=== PATIENT | female | born 1995 | race Caucasian/White ===

== ENCOUNTER 2017-03-22 21:32 | Emergency (ER) | payer OTHER ==
[~2017-03-22] VITALS: Ht 154.9 cm; Wt 76.2 kg
[2017-03-22] MEDS ORDERED: PRENATAL VITAMINS PO (21:52)
[2017-03-22] MEDS ORDERED: thyroid PO (21:52)
[2017-03-22 22:22] LABS: BASO % 0.1 % (0.0-1.0); EOS # 0.1 K/mm3 (0.0-0.50); EOS % 0.7 % (0.0-3.0); LARGE UNSTAINED CELL # 0.2 K/mm3 (0.0-0.4); LARGE UNSTAINED CELL % 1.7 % (0.0-4.0); LYMPH # 2.7 K/mm3 (1.5-6.5); LYMPH % 21.5 % (24.0-44.0); MEAN CORPUSCULAR HEMOGLOBIN 28.9 pg (27.0-33.0); MEAN CORPUSCULAR HGB CONC 34.5 g/dl (32.0-36.5); MEAN CORPUSCULAR VOLUME 83.8 fl (80.0-96.0); MONO # 0.5 K/mm3 (0.0-0.8); MONO % 3.7 % (0.0-5.0); NEUTROPHILS # 8.9 K/mm3 (1.8-7.7); NEUTROPHILS % 72.3 % (36.0-66.0); PLATELET COUNT, AUTOMATED 193 k/mm3 (150-450); WHITE BLOOD COUNT 12.4 K/mm3 (4.0-10.0)
--- NOTE | 2017-03-22 23:30 | REPUSA ---
CLINICAL HISTORY: , vaginal bleeding. LMP November 15, 2016. LMP gestational age 18 weeks 1 day. TECHNIQUE: OB ultrasound COMPARISON: No study for comparison is available at the time of interpretation. Uterus: Normal without masses. Cervix 3.1 cm with closed os. Intrauterine gestation sac: Live IUP at 18 weeks 3 days with heart rate 141 bpm. CARLENE (US) August 20, 2017 BPD: 18 weeks 4 days HC: 18 weeks 2 days AC: 18 weeks 3 days FL: 18 weeks 5 days EFW: 146 g, 65% expected A full anatomic evaluation is beyond the scope of this emergency ultrasound. There is suboptima l evaluation of the cranium, cavum septum pellucidum, 4 chamber heart and spine. UVALDO within normal limits. Placenta: Posterior, without previa. Maternal Ovaries: Not visualized. IMPRESSION: Live IUP at 18 weeks 3 days. Sizes equal dates. Insufficient anatomic evaluation. Recommend follow-up ultrasound to complete anatomic survey.
[2017-03-22 23:45] VITALS: BP 132/62
== END 2017-03-22 23:46 | disposition home or self-care (01) ==
LOC: M ED 23:37
DX: O20.0 Threatened abortion (principal); O99.282 Endocrine, nutritional and metabolic diseases complicating pregnancy, second trimester; E03.9 Hypothyroidism, unspecified; O99.332 Smoking (tobacco) complicating pregnancy, second trimester; Z79.899 Other long term (current) drug therapy; Z3A.18 18 weeks gestation of pregnancy

== ENCOUNTER 2017-05-28 01:10 | Emergency (ER) | payer OTHER ==
[~2017-05-28 01:10] MED LIST: PRENATAL VITAMINS PO; thyroid PO
== END 2017-05-28 01:32 | disposition admitted as inpatient to this hospital (09) ==
LOC: M ED 01:10
DX: R10.9 Unspecified abdominal pain (principal)

== ENCOUNTER 2017-05-28 01:28 | Outpatient (CLI) | payer OTHER ==
[~2017-05-28] VITALS: Ht 157.5 cm; Wt 80.0 kg
[2017-05-28 01:48] VITALS: BP 122/68
== END 2017-05-28 02:19 | disposition home or self-care (01) ==
LOC: M LDO 01:28
PROVIDERS: ATTEND Student in an Organized Health Care Education/Training Program
DX: O26.892 Other specified pregnancy related conditions, second trimester (principal); Z3A.27 27 weeks gestation of pregnancy; R10.9 Unspecified abdominal pain; K21.9 Gastro-esophageal reflux disease without esophagitis; E05.00 Thyrotoxicosis with diffuse goiter without thyrotoxic crisis or storm; F17.210 Nicotine dependence, cigarettes, uncomplicated; O99.282 Endocrine, nutritional and metabolic diseases complicating pregnancy, second trimester; O99.332 Smoking (tobacco) complicating pregnancy, second trimester; O99.612 Diseases of the digestive system complicating pregnancy, second trimester

== ENCOUNTER 2017-06-30 13:56 | Outpatient (CLI) | payer OTHER ==
[~2017-06-30] VITALS: Ht 157.5 cm; Wt 80.0 kg
[2017-06-30 14:13] VITALS: BP 151/70
[2017-06-30 14:22] VITALS: BP 129/65
[2017-06-30] MEDS ORDERED: LR 1,000 ML IV SCH ×2 (15:00→19:13)
[2017-06-30] MEDS ORDERED: LR 1,000 ML IV ONE (15:00)
[2017-06-30 15:23] VITALS: BP 126/66
[2017-06-30 15:54] LABS: MEAN CORPUSCULAR HEMOGLOBIN 29.2 pg (27.0-33.0); MEAN CORPUSCULAR HGB CONC 34.9 g/dl (32.0-36.5); MEAN CORPUSCULAR VOLUME 83.5 fl (80.0-96.0)
[2017-06-30 15:59] LABS: CALCIUM OXALATE CRYSTALS SMALL
[2017-06-30 16:16] LABS: ALBUMIN 2.7 GM/DL (3.2-5.2); ALBUMIN/GLOBULIN RATIO 0.73 (1.00-1.93); ALKALINE PHOSPHATASE 183 U/L (45-117); ALT/SGPT 16 U/L (12-78); ANION GAP 8 MEQ/L (8-16); AST/SGOT 11 U/L (15-37); BILIRUBIN,TOTAL 1.6 MG/DL (0.2-1.0); BLOOD UREA NITROGEN 4 MG/DL (7-18); CALCIUM LEVEL 9.1 MG/DL (8.5-10.1); CARBON DIOXIDE LEVEL 24 MEQ/L (21-32); CHLORIDE LEVEL 108 MEQ/L (98-107); CREATININE FOR GFR 0.41 MG/DL (0.55-1.02); GLUCOSE, FASTING 85 MG/DL (70-105); POTASSIUM SERUM 3.9 MEQ/L (3.5-5.1); SODIUM LEVEL 140 MEQ/L (136-145); TOTAL PROTEIN 6.4 GM/DL (6.4-8.2)
[2017-06-30 17:15] VITALS: BP 115/57
[2017-06-30 18:26] VITALS: BP 117/61
[2017-06-30] MEDS ORDERED: BETAMETHASONE SOLUSPAN 6MG/ML INJ 5ML (J0702) IM SCH (19:15)
== END 2017-06-30 21:10 | disposition home or self-care (01) ==
LOC: M LDO 13:56
PROVIDERS: ATTEND Student in an Organized Health Care Education/Training Program
DX: O47.03 False labor before 37 completed weeks of gestation, third trimester (principal); Z3A.32 32 weeks gestation of pregnancy; O99.283 Endocrine, nutritional and metabolic diseases complicating pregnancy, third trimester; O99.613 Diseases of the digestive system complicating pregnancy, third trimester; O13.3 Gestational [pregnancy-induced] hypertension without significant proteinuria, third trimester
CPT/HCPCS: 36415; 59025; 80053; 81001; 82570; 84156; 85027; 86780; 86850; 86900; 86901; 87081; 87086; 96365; 96366; 96372; J0702

== ENCOUNTER 2017-07-01 18:47 | Outpatient (CLI) | payer OTHER ==
[~2017-07-01] VITALS: Ht 157.5 cm; Wt 80.0 kg
[2017-07-01 18:58] VITALS: BP 128/67
[2017-07-01] MEDS ORDERED: BETAMETHASONE SOLUSPAN 6MG/ML INJ 5ML (J0702) IM STA (19:29)
[2017-07-01 19:58] VITALS: BP 118/66
== END 2017-07-01 20:00 | disposition home or self-care (01) ==
LOC: M LDO 18:47
PROVIDERS: ATTEND Obstetrics & Gynecology
DX: Z34.83 Encounter for supervision of other normal pregnancy, third trimester (principal); Z3A.32 32 weeks gestation of pregnancy; O36.8130 Decreased fetal movements, third trimester, not applicable or unspecified

== ENCOUNTER → 2017-07-03 | Outpatient (CLI) | payer OTHER ==
[~2017-07-03] MED LIST changes: +COLA100C5 PO; +IBUP-1114 PO; +METH10TA PO; +TUMS500C PO
--- NOTE | 2017-07-04 14:30 | REP ---
Clinical: well-being. Biophysical profile. Technique: Transabdominal obstetrical ultrasound using curved array transducer with color Doppler evaluation. Findings: Single live advanced gestation in cephalic presentation. motion was identified by technologist. Placenta is noted posteriorly and grade 1 without evidence for placenta previa or abruption. Amniotic fluid volume is normal. Cervix measures 3 cm in length and appears closed. Gestational age by LMP 32 week 6 days with estimated date of delivery 08/22/2017. heart rate equals 140 beats per minute. Biophysical profile score equals 8/8. Amniotic fluid index equals 14.4 cm (8.3 - 24.5). Umbilical cord SD ratio equals 2.96 (2.05 - 3.05). Impression: Single live advanced gestation in cephalic presentation. No physical profile score equals 8/8. UVALDO equals 14.4 cm. Signed by Kyle Gifford MD 07/03/2017 09:51 P
== END ==
LOC: M RAD 10:35
PROVIDERS: ATTEND Obstetrics & Gynecology
DX: Z36 Encounter for antenatal screening of mother (principal); Z3A.32 32 weeks gestation of pregnancy

== ENCOUNTER 2017-07-27 20:08 | Outpatient (CLI) | payer OTHER ==
[~2017-07-27] VITALS: Ht 154.9 cm; Wt 85.0 kg
[~2017-07-27 20:08] MED LIST changes: -COLA100C5 PO; -IBUP-1114 PO; -METH10TA PO; -TUMS500C PO
[2017-07-27 20:25] VITALS: BP 136/78
[2017-07-27] MEDS ORDERED: METH10TA PO (20:26)
[2017-07-27] MEDS ORDERED: TUMS500C PO (20:26)
--- NOTE | 2017-07-27 22:26 | HPE ---
DATE OF ADMISSION: 07/27/2017 HISTORY: A 22-year-old 3, para 2, last menstrual period (LMP) 10/30/2016, estimated date of confinement (EDC) 08/22/2017, at 36 and three, had decreased movement since 04:00 p.m. today. RISK FACTORS: She has Graves' disease. She is a smoker, had a previous history of intrauterine demise (IUFD) at 20 weeks and has gastroesophageal reflux disease (GERD). She has also had a delivery at 36 weeks induced for gestational hypertension. PAST HISTORY: 1. 2012: 20 weeks IUFD, uncertain circumstances. 2. 2015: At 36 weeks induction of labor for gestational hypertension (G-HYPERTENSION) male 6 pounds 6 ounces, spontaneous vaginal delivery. LABORATORY DATA: O positive, HIV negative, hepatitis negative, RPR negative, rubella immune. Varicella by history. Urine negative. Gonorrhea and chlamydia negative. 1-hour glucose 116. CF was declined. PHYSICAL EXAMINATION: On examination no acute distress. Symphysis fundus height is appropriate. Four quadrant bowel sounds are noted. Category one strip. No contractions. The occasional tightening is noted, but she has had that for several weeks. No vaginal loss or bleeding. Urine is 1.015, pH six is negative. Blood pressure 136/78, respirations 20, pulse 114, temperature is 98.1. The rest the examination is unremarkable. Normocephalic, atraumatic. Neck full range of motion. Pupils equal and reactive to light. Distal pulses symmetric. No evidence of deep venous thrombosis (DVT), pulmonary embolism (PE) or superficial phlebitis. Lungs are clear bilaterally to the bases. No wheezes or rhonchi. No costovertebral angle tenderness. Abdomen as mentioned is normal. Nontender uterus. Four quadrant bowel sounds are noted. She has no rashes, lesions or pruritus. No arthralgia or myalgia. No complaints of cough, wheezes, shortness of breath or dyspnea on exertion. Thyroid is midline, nontender, 30 grams. No chest pain. No bleeding. Neuro complete. No incontinence, urgency or frequency. No nausea, vomiting, diarrhea or constipation. No diabetic issues. Endocrine issues are her thyroid which is under control with medication. She is going to run out tomorrow and we will get a refill. GYNECOLOGIC HISTORY: She is less than 21. No Pap smear. PAST MEDICAL HISTORY. GERD and Graves' disease. PAST SURGICAL HISTORY: Noncontributory. FAMILY HISTORY: Noncontributory. SOCIAL HISTORY: She smokes. Does not drink, does not abuse drugs. She is to a soldier. No domestic violence. ASSESSMENT AND PLAN: In summary have a 36 and 3 weeks of gestation with decreased movement. Category one strip. Precautions were given regarding kick chart, premature rupture of membranes, bleeding, and when to call the provider. The patient was discharged undelivered. She has an appointment tomorrow with Dr. Gomes
== END 2017-07-27 21:16 | disposition home or self-care (01) ==
LOC: M LDO 20:08
PROVIDERS: ATTEND Obstetrics & Gynecology
DX: O36.8130 Decreased fetal movements, third trimester, not applicable or unspecified (principal); Z3A.36 36 weeks gestation of pregnancy; E05.00 Thyrotoxicosis with diffuse goiter without thyrotoxic crisis or storm; O99.283 Endocrine, nutritional and metabolic diseases complicating pregnancy, third trimester; O99.333 Smoking (tobacco) complicating pregnancy, third trimester; O13.3 Gestational [pregnancy-induced] hypertension without significant proteinuria, third trimester; O99.613 Diseases of the digestive system complicating pregnancy, third trimester

== ENCOUNTER 2017-08-17 06:24 | Outpatient (CLI) | payer OTHER ==
[~2017-08-17] VITALS: Ht 154.9 cm; Wt 90.0 kg
[2017-08-17] VITALS (7 sets, daily range): BP systolic 117–165; BP diastolic 71–94
[~2017-08-17 06:24] MED LIST changes: +METH10TA PO; +TUMS500C PO
--- NOTE | 2017-08-17 08:01 | IPNPDOC ---
Text Note Date of Service The patient was seen on 08/17/17. NOTE [id number] @ 0748 22 yo @ 39+2 by 5+6 wk US on [id number] presents to L&D ambulatory for IOL(social). She was instructed that if her cervix is not favorable for IOL then he will be sent home. Denies LOF, DFM, CTX and VB. RN informed me that she had a BP 165/94 @ 0722, repeat BP 117/71 @ 0724. will draw lab. S: Pt is resting in bed comfortable with spouse at bedside. O: Isolated elevated BP, febrile FHR-130, moderate variability, + accels, no decels CTX- Q 3-7 min, palpated as mild, resting tone palpated as soft SVE- 1/thick/ballotable, soft/mid/vtx PCR-0.18 Plt- 126 AST-9 ALT- 13 LDH- 153 A: 22 yo @ 39+2, cervix is unfavorable for IOL. Reactive NST. Labs are appropriate P: Discharge to home with strict return precautions for pre-e and labor precautions. She verbalized understanding. VS,Fishbone, I+O VS, Fishbone, I+O Vital Signs Date Time Temp Pulse Resp B/P (MAP) Pulse Ox O2 Delivery O2 Flow Rate FiO2 08/17/17 06:47 99.1 129 18 132/89 (103) DILIA ABBASI CNM Aug 17, 2017 08:01
[2017-08-17 08:12] LABS: MEAN CORPUSCULAR HEMOGLOBIN 28.2 pg (27.0-33.0); MEAN CORPUSCULAR HGB CONC 34.2 g/dl (32.0-36.5); MEAN CORPUSCULAR VOLUME 82.3 fl (80.0-96.0); WHITE BLOOD COUNT 8.8 10^3/uL (4.0-10.0)
[2017-08-17 08:58] LABS: ALBUMIN 2.4 GM/DL (3.2-5.2); ALBUMIN/GLOBULIN RATIO 0.69 (1.00-1.93); ALKALINE PHOSPHATASE 227 U/L (45-117); ALT/SGPT 13 U/L (12-78); ANION GAP 10 MEQ/L (8-16); AST/SGOT 9 U/L (15-37); BILIRUBIN,TOTAL 1.1 MG/DL (0.2-1.0); BLOOD UREA NITROGEN 4 MG/DL (7-18); CALCIUM LEVEL 8.4 MG/DL (8.5-10.1); CARBON DIOXIDE LEVEL 21 MEQ/L (21-32); CHLORIDE LEVEL 111 MEQ/L (98-107); CREATININE FOR GFR 0.36 MG/DL (0.55-1.02); GLUCOSE, FASTING 93 MG/DL (70-105); POTASSIUM SERUM 3.7 MEQ/L (3.5-5.1); SODIUM LEVEL 142 MEQ/L (136-145); TOTAL PROTEIN 5.9 GM/DL (6.4-8.2); URIC ACID 4.1 MG/DL (2.6-6.0)
== END 2017-08-17 09:48 | disposition home or self-care (01) ==
LOC: M LDO 06:24
PROVIDERS: ATTEND Midwife
DX: O26.893 Other specified pregnancy related conditions, third trimester (principal); Z3A.39 39 weeks gestation of pregnancy

== ENCOUNTER 2017-08-21 12:34 | Inpatient (IN) | payer OTHER ==
[~2017-08-21] VITALS: Ht 154.9 cm; Wt 89.8 kg
[2017-08-21] VITALS (31 sets, daily range): BP systolic 128–171; BP diastolic 63–96
[2017-08-21] MEDS: miSOPROStol 50 MCG 1/2 TAB (S0191) PO SCH ×2 (15:34→19:00)
[2017-08-21 15:55] LABS: MEAN CORPUSCULAR HEMOGLOBIN 27.1 pg (27.0-33.0); MEAN CORPUSCULAR HGB CONC 33.3 g/dl (32.0-36.5); MEAN CORPUSCULAR VOLUME 81.4 fl (80.0-96.0); PLATELET COUNT, AUTOMATED 152 10^3/uL (150-450); RED CELL DISTRIBUTION WIDTH 13.8 % (11.5-14.5); WHITE BLOOD COUNT 11.1 10^3/uL (4.0-10.0)
[2017-08-21] MEDS ORDERED: FENTANYL 2MCG/ML ROPIVACAINE 0.2% IN 0.9% NACL 200ML IVBAG As Ordered ONE (19:06)
[2017-08-21] MEDS ORDERED: ePHEDrine SULFATE 25 MG/5 ML(5MG/ML) SYRINGE IV PRN (20:15)
[2017-08-21] MEDS ORDERED: EPIDURAL COMMENT XX SCH (20:15)
[2017-08-21] MEDS ORDERED: diphenhydrAMINE INJ 50MG/ML VIAL (J1200) IV PRN (20:15)
[2017-08-21] MEDS ORDERED: LACTATED RINGER'S 1000 ML IV PRN (20:15)
[2017-08-21] MEDS ORDERED: ONDANSETRON 4MG/2ML VIAL (J2405) IV PRN ×2 (20:15→23:45)
[2017-08-21] MEDS ORDERED: REFRIGERATOR IV KEYS XX PRN (20:15)
[2017-08-21] MEDS ORDERED: NALOXONE INJ 0.4 MG/1 ML VIAL (J2310) IV PRN (20:15)
[2017-08-21] MEDS ORDERED: FENTANYL/ROPIVACAINE/NACL BAG 200 ML EPIDURAL SCH (20:15)
[2017-08-21] MEDS ORDERED: EPIDURAL/PCA KEYS XX PRN (20:15)
[2017-08-21] MEDS ORDERED: OXYTOCIN 30 UNITS IN 0.9% NaCl 500ML IV BAG (J2590) As Ordered ONE (23:12)
[2017-08-21] MEDS ORDERED: OXYTOCIN DRIP 30 UNITS in APPROPRIATE DILUENT 1 EA IV SCH (23:44)
[2017-08-21] MEDS ORDERED: ACETAMINOPHEN 500 MG TAB PO PRN (23:45)
[2017-08-21] MEDS ORDERED: DIBUCAINE 1% OINTMENT 30GM TOP PRN (23:45)
[2017-08-21] MEDS ORDERED: RHOGAM 300 MCG (1500 IU) INJ (J2790) IM SCH (23:45)
[2017-08-21] MEDS ORDERED: METHYLERGONOVINE MALEATE 0.2 MG/ML VIAL (J2210) IM PRN (23:45)
[2017-08-21] MEDS ORDERED: MEASLES,MUMPS,RUBELLA VACCINE INJ (MMR-II) (90707) SC SCH (23:45)
[2017-08-21] MEDS ORDERED: PROMETHAZINE 25 MG TAB PO PRN (23:45)
[2017-08-22] VITALS (10 sets, daily range): BP systolic 106–151; BP diastolic 59–88
[2017-08-22] MEDS: IBUPROFEN 800 MG TAB PO PRN ×2 (05:53→16:11)
[2017-08-22] MEDS: DOCUSATE SODIUM 100 MG CAP PO SCH ×2 (09:00→19:46)
[2017-08-22] MEDS: PRENATAL VITAMINS CHEWABLE TABLET PO SCH (09:54)
[2017-08-23] MEDS: IBUPROFEN 800 MG TAB PO PRN (03:42)
[2017-08-23 04:25] VITALS: BP 130/80
[2017-08-23 06:00] VITALS: BP 139/68
[2017-08-23 07:17] LABS: MEAN CORPUSCULAR HEMOGLOBIN 27.8 pg (27.0-33.0); MEAN CORPUSCULAR HGB CONC 33.6 g/dl (32.0-36.5); MEAN CORPUSCULAR VOLUME 82.8 fl (80.0-96.0); PLATELET COUNT, AUTOMATED 134 10^3/uL (150-450); WHITE BLOOD COUNT 7.3 10^3/uL (4.0-10.0)
--- NOTE | 2017-08-23 07:18 | IPNPDOC ---
Progress Note Date of Service The patient was seen on 08/23/17 at 07:15. Progress Note PPD#2 s/p S: Pt doing well. Pain well controlled, lochia minimal, voiding spontaneously without problem, tolerating a regular diet, ambulating without difficulty. No f /c/n/v/CHUNG. Plans on breast feeding. O: normotensive now but had a couple mild range bp's yesterday, nml HR, afebrile General: WDWN, resting comfortably in bed Abd: soft, appropriately tender, and FF at U-2/fundus nontender Ext: no c/c/e A/P: S/p , PPD#2. Hemodynamically stable, afebrile, good pain control. Had a couple mild range bp's, no symptoms of pre-E. -PIH labs, anticipate they will be normal -Discharge home today with follow up in 6 weeks -discussed return precautions at length -given home meds: lanolin, colace, tylenol, motrin Dr. Fabi Padron ([facility])MD VS, I&O, 24H, Fishbone Vital Signs/I&O Vital Signs Date Time Temp Pulse Resp B/P (MAP) Pulse Ox O2 Delivery O2 Flow Rate FiO2 08/23/17 06:00 98.0 95 18 139/68 (91) 08/22/17 13:00 98 Room Air Laboratory Data 24H LABS Laboratory Tests 2 08/23/17 07:09: FABI PADRON MD Aug 23, 2017 07:18
[2017-08-23 07:40] LABS: ALBUMIN 2.5 GM/DL (3.2-5.2); ALBUMIN/GLOBULIN RATIO 0.76 (1.00-1.93); ALKALINE PHOSPHATASE 180 U/L (45-117); ALT/SGPT 13 U/L (12-78); ANION GAP 9 MEQ/L (8-16); AST/SGOT 15 U/L (15-37); BILIRUBIN,TOTAL 0.8 MG/DL (0.2-1.0); BLOOD UREA NITROGEN 5 MG/DL (7-18); CALCIUM LEVEL 8.3 MG/DL (8.5-10.1); CARBON DIOXIDE LEVEL 23 MEQ/L (21-32); CHLORIDE LEVEL 109 MEQ/L (98-107); CREATININE FOR GFR 0.43 MG/DL (0.55-1.02); GLUCOSE, FASTING 95 MG/DL (70-105); POTASSIUM SERUM 3.8 MEQ/L (3.5-5.1); SODIUM LEVEL 141 MEQ/L (136-145); TOTAL PROTEIN 5.8 GM/DL (6.4-8.2); URIC ACID 3.7 MG/DL (2.6-6.0)
[2017-08-23] MEDS ORDERED: COLA100C5 PO (07:46)
[2017-08-23] MEDS ORDERED: IBUP-1114 PO (07:47)
[2017-08-23] MEDS: PRENATAL VITAMINS CHEWABLE TABLET PO SCH (08:08)
[2017-08-23] MEDS: DOCUSATE SODIUM 100 MG CAP PO SCH (08:08)
[2017-08-23] MEDS ORDERED: FAMOTIDINE 20 MG TAB PO SCH (09:00)
== END 2017-08-23 10:40 | disposition home or self-care (01) | DRG 775 ==
LOC: M LDI 12:34 → M OBS 08-22 02:00
PROVIDERS: ADMIT Obstetrics & Gynecology; ATTEND Obstetrics & Gynecology
PROC: 10E0XZZ Delivery of Products of Conception, External Approach (ICD-10-PCS; principal; 2017-08-21)
PROC: 3E0DXGC Introduction of Other Therapeutic Substance into Mouth and Pharynx, External Approach (ICD-10-PCS; 2017-08-21)
DX: O99.284 Endocrine, nutritional and metabolic diseases complicating childbirth (principal); E05.00 Thyrotoxicosis with diffuse goiter without thyrotoxic crisis or storm; Z3A.39 39 weeks gestation of pregnancy; Z37.0 Single live birth; O99.334 Smoking (tobacco) complicating childbirth; F17.200 Nicotine dependence, unspecified, uncomplicated; O99.62 Diseases of the digestive system complicating childbirth; K21.9 Gastro-esophageal reflux disease without esophagitis; O99.344 Other mental disorders complicating childbirth; F32.9 Major depressive disorder, single episode, unspecified; Z79.899 Other long term (current) drug therapy

== ENCOUNTER → 2018-02-14 | Outpatient (CLI) | payer OTHER | LOC: M LRY 11:53 | DX: T14.90XA Injury, unspecified, initial encounter (principal); X58.XXXA Exposure to other specified factors, initial encounter; Y92.89 Other specified places as the place of occurrence of the external cause | CPT/HCPCS: G0463 ==